=== PATIENT | female | born 1950 | race African-American/Black ===

== ENCOUNTER 2021-01-11 22:20 | Emergency (ER) | payer OTHER ==
[~2021-01-11] VITALS: Ht 167.6 cm; Wt 56.7 kg
[2021-01-11 22:20] VITALS: BP 190/98
--- NOTE | 2021-01-11 22:20 | NUR ---
FER LOZANO TAKEN TO BED #8
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
[2021-01-11] MEDS ORDERED: KETOROLAC 60 MG/2 ML VIAL IM ONE (22:35)
[2021-01-11] MEDS ORDERED: MORPHINE SULFATE 4 MG/ML SYR IM ONE (23:50)
[2021-01-12] MEDS ORDERED: ACET-8386 PO (00:19)
[2021-01-12 01:41] LABS: BASOPHILS % (AUTO) 1.1 % (0.0-2.0); EOSINOPHILS # (AUTO) 0.1 K/uL (0-0.4); HEMATOCRIT 34.1 % (36-48); HEMOGLOBIN 11.1 g/dL (12.0-16.0); LYMPHOCYTES # (AUTO) 1.6 K/uL (2.5-16.5); LYMPHOCYTES % (AUTO) 54.3 % (20.5-51.1); MEAN CORPUSCULAR HEMOGLOBIN 30 pg (27-31); MEAN CORPUSCULAR HGB CONC 33 g/dL (33-37); MEAN CORPUSCULAR VOLUME 92.5 fL (80-94); MONOCYTES # (AUTO) 0.2 K/uL (0.8-1.0); MONOCYTES % (AUTO) 6.6 % (1.7-9.3); PLATELET COUNT (AUTO) 162 K/uL (140-450); RED BLOOD CELL COUNT(AUTO) 3.69 MIL/uL (4.20-5.40); RED CELL DISTRIBUTION WIDTH 13.6 % (11.6-13.7); WHITE BLOOD COUNT (AUTO) 2.9 K/uL (4.8-10.8)
[2021-01-12 02:01] LABS: ANION GAP 7.4 (8-16); CARBON DIOXIDE 30.4 mmol/L (21-32); CREATININE 0.6 mg/dL (0.6-1.3); POTASSIUM 3.8 mmol/L (3.5-5.1)
--- NOTE | 2021-01-12 03:00 | NUR ---
RECEIVED A CALL FROM VERNELL (DOUGIE), GATHERED INFORMATION REGARDING THE PATIENT.
--- NOTE | 2021-01-12 04:00 | NUR ---
PT REQUESTED PAIN MEDICATION, ERMD MADE AWARE. ORDERS RECEIVED.
[2021-01-12] MEDS ORDERED: MORPHINE SULFATE 4 MG/ML SYR IVP ONE (04:25)
[2021-01-12] MEDS ORDERED: MORPHINE SULFATE 4 MG/ML SYR ONE (04:31)
--- NOTE | 2021-01-12 05:25 | NUR ---
Patient appears to be resting comfortably in bed. Vital Signs within normal limits. Respirations even and unlabored.
[2021-01-12] MEDS ORDERED: IBUP-1842 PO (06:08)
--- NOTE | 2021-01-12 07:17 | NUR ---
GIVEN REPORT TO TRAVIS FOSTER. TRANSFER OF CARE AT THIS TIME
--- NOTE | 2021-01-12 07:18 | NUR ---
Receved report from TRAVIS Lopez. Transfer of care at this time.
--- NOTE | 2021-01-12 07:25 | NUR ---
Pt sleeping, visible equal rise and fall of chest, VSS, will continue to monitor.
[2021-01-12] MEDS ORDERED: HYDROcodone/APAP 5/325 MG 1 TAB TAB PO ONE (09:30)
--- NOTE | 2021-01-12 09:51 | NUR ---
Pt assisted on to bedpan.
--- NOTE | 2021-01-12 10:06 | NUR ---
Pt resting, repositioned for comfort, provided warm blanker, VSS, will continue to monitor.
--- NOTE | 2021-01-12 11:46 | NUR ---
Pt assisted on to bedpan.
--- NOTE | 2021-01-12 11:54 | NUR ---
Gave report to TRAVIS Sr for pending transfer. ETA for [facility] to us 20minutes.
--- NOTE | 2021-01-12 12:11 | NUR ---
[facility] BLS CREW BEDSIDE FOR TRANSPORT
[2021-01-12 12:19] VITALS: BP 159/66
--- NOTE | 2021-01-12 12:21 | NUR ---
Patient to be transferred to [facility]. Is being transferred due to CONTINUITY OF CARE. Receiving facility has accepting physician and available space. ER physician has signed transfer form. Patient or responsible green party has agreed to transfer and signed form. Patient belongings inventoried and will be sent with patient. Copy of nursing notes, lab reports, EKG, Physicians Orders and X-rays to be sent with patient. Report called to TRAVIS VALDEZ at receiving facility. [facility] ambulance service has been called for transfer. ETA is 1HR.
== END 2021-01-12 12:21 ==
LOC: MED 22:20
DX: M25.559 Pain in unspecified hip (principal); Z20.822 Contact with and (suspected) exposure to COVID-19; Z79.899 Other long term (current) drug therapy
CPT/HCPCS: 36415; 80048; 85025; 87426; 96372; 96374; 99285; J2270; J1885